=== PATIENT | male | born 1950 | race Caucasian/White ===

== ENCOUNTER 2024-01-22 14:08 | Emergency (ER) | payer OTHER ==
[~2024-01-22] VITALS: Ht 185.4 cm; Wt 88.0 kg
[2024-01-22 16:01] LABS: Urine Bacteria None Seen /hpf (None Seen)
[2024-01-22 16:24] LABS: Urine Blood Negative /uL (Negative); Urine Clarity Clear (Clear); Urine Color Yellow (Yellow); Urine Mucus FEW (None Seen); Urine Protein, UAD TRACE (Negative); Urine Specific Gravity 1.027 (1.001-1.035); Urine Urobilinogen Normal (Negative); Urine WBC 4 /hpf (0 - 3); Urine pH 5.5 (5.0-9.0)
[2024-01-22 16:45] LABS: Basophils # (auto) 0 10 ^3/uL (0-0.2); Basophils % (auto) 0.3 % (0.0-2.0); Eosinophils # (auto) 0 10 ^3/uL (0-0.8); Eosinophils % (auto) 0.1 % (0.0-7.0); Hematocrit 43.4 % (41.0-53.0); Hemoglobin 14.4 g/dL (13.5-17.5); Lymphocytes # (auto) 0.8 10 ^3/uL (0.4-5.4); Lymphocytes % (auto) 8.9 % (10.0-50.0); Mean Corpuscular Hemoglobin 27.3 pg (28.0-32.0); Mean Corpuscular Hgb Conc. 33.2 g/dL (32.0-36.0); Mean Corpuscular Volume 82.1 fL (80.0-100.0); Monocytes # (auto) 0.5 10 ^3/uL (0-1.3); Neutrophils # (auto) 7.2 10 ^3/uL (1.6-8.6); Neutrophils % (auto) 84.7 % (37.0-80.0); Nucleated Red Blood Cells % 0.1 %; Red Blood Cells 5.28 10^6/uL (4.5-5.90); Red Cell Distribution Width 14.9 % (11.8-14.3); White Blood Cell 8.5 10^3/uL (4.4-10.8)
[2024-01-22] MEDS: MECLIZINE HCL 25 MG TAB PO ONE (16:49)
[2024-01-22 16:58] LABS: Chloride 108 mmol/L (98-107); Potassium 3.7 mmol/L (3.5-5.1); Sodium 140 mmol/L (136-145)
[2024-01-22 16:59] VITALS: BP 153/79; PULSE 88; RESP 17; TEMP 97.7; O2SAT 97
[2024-01-22 16:59] LABS: Anion Gap 9 (5-15); Calcium 10.7 mg/dL (8.7-10.4); Carbon Dioxide 23 mmol/L (20-30)
[2024-01-22 17:05] LABS: BUN/Creatinine Ratio 20.3 (10.0-20.0); Blood Urea Nitrogen 14 mg/dL (9-23); Glucose 119 mg/dL (74-106); Lipase 32 U/L (12-53)
[2024-01-22] MEDS ORDERED: ZOFR4T PO (17:43)
[2024-01-22] MEDS ORDERED: MECL1TAB42 PO (17:43)
== END 2024-01-22 18:14 | disposition home or self-care (01) ==
LOC: ER 14:08
DX: R42 Dizziness and giddiness (principal)
CPT/HCPCS: 36415; 70450; 80048; 81001; 83605; 83690; 83880; 84484; 85025; 93005; 99284; J8597

== ENCOUNTER 2024-01-24 04:13 | Inpatient (IN) | payer OTHER ==
[~2024-01-24] VITALS: Ht 185.4 cm; Wt 84.2 kg
[2024-01-24] VITALS (8 sets, daily range): BP systolic 119–157; BP diastolic 70–94; PULSE 71–91; RESP 16–18; TEMP 97.9–98.4; O2SAT 92–97
[~2024-01-24 04:13] MED LIST: MECL1TAB42 PO; ZOFR4T PO
[2024-01-24 05:03] LABS: Basophils # (auto) 0.1 10 ^3/uL (0-0.2); Basophils % (auto) 1.1 % (0.0-2.0); Eosinophils # (auto) 0.1 10 ^3/uL (0-0.8); Eosinophils % (auto) 0.9 % (0.0-7.0); Hematocrit 42.1 % (41.0-53.0); Hemoglobin 13.8 g/dL (13.5-17.5); Lymphocytes % (auto) 14.8 % (10.0-50.0); Mean Corpuscular Hemoglobin 27.1 pg (28.0-32.0); Mean Corpuscular Hgb Conc. 32.9 g/dL (32.0-36.0); Mean Corpuscular Volume 82.5 fL (80.0-100.0); Monocytes # (auto) 0.7 10 ^3/uL (0-1.3); Monocytes % (auto) 9.9 % (0.0-12.0); Neutrophils # (auto) 4.9 10 ^3/uL (1.6-8.6); Neutrophils % (auto) 73.3 % (37.0-80.0); Nucleated Red Blood Cells % 0.1 %; Red Cell Distribution Width 15.1 % (11.8-14.3); White Blood Cell 6.7 10^3/uL (4.4-10.8)
[2024-01-24 05:22] LABS: Alanine Aminotransferase 35 U/L (7-40); Albumin 4.6 g/dL (3.2-4.8); Alkaline Phosphatase 88 U/L (46-116); Anion Gap 7 (5-15); Aspartate Aminotransferase 23 U/L (13-40); BUN/Creatinine Ratio 21.3 (10.0-20.0); Bilirubin, Total 0.7 mg/dL (0.2-1.0); Blood Urea Nitrogen 16 mg/dL (9-23); Calcium 10.1 mg/dL (8.7-10.4); Carbon Dioxide 24 mmol/L (20-30); Chloride 109 mmol/L (98-107); Glucose 110 mg/dL (74-106); Magnesium 2.1 mg/dL (1.6-2.6); Potassium 3.6 mmol/L (3.5-5.1); Sodium 140 mmol/L (136-145)
[2024-01-24 05:25] LABS: INR 1.03 (0.9-1.15); Partial Thromboplastin Time 28.1 SEC (24.5-34.5); Prothrombin Time 10.8 sec (9.3-11.8)
[2024-01-24] MEDS: LORazepam 2MG/ML-1ML VIAL IV ONE (08:25)
[2024-01-24] MEDS: MECLIZINE HCL 25 MG TAB PO ONE ×2 (08:25→20:26)
[2024-01-24] MEDS: FUROSEMIDE 20 MG/2 ML VIAL IV ONE (08:35)
[2024-01-24] MEDS: SODIUM CHLORIDE 0.9% 1,000 ML IV ONE (09:23)
[2024-01-24] MEDS: SODIUM CHLORIDE 0.9% 500 ML IVB ONE (09:23)
[2024-01-24 09:25] LABS: Urine Bacteria None Seen /hpf (None Seen)
[2024-01-24 09:39] LABS: Urine Blood Negative /uL (Negative); Urine Clarity Clear (Clear); Urine Color Light-Yellow (Yellow); Urine Mucus FEW (None Seen); Urine Protein, UAD Negative (Negative); Urine Specific Gravity 1.023 (1.001-1.035); Urine Urobilinogen Normal (Negative); Urine WBC 2 /hpf (0 - 3)
[2024-01-24] MEDS ORDERED: NITROGLYCERIN 0.4 MG SL TAB SL PRN (11:00)
[2024-01-24] MEDS ORDERED: MORPHINE SULFATE INJ 2 MG/ml SYRG IV PRN (11:00)
[2024-01-24] MEDS ORDERED: ONDANSETRON HCL 4 MG/2 ML VIAL IV PRN (11:15)
[2024-01-24] MEDS ORDERED: AMLO-412 PO (17:04)
[2024-01-24] MEDS ORDERED: SIMV40TA18 PO (17:04)
[2024-01-24] MEDS: SODIUM CHLORIDE 0.9% 1,000 ML IV SCH (20:26)
[2024-01-24] MEDS: hydrALAZINE HCL 20 MG/ML VL IV PRN (21:15)
[2024-01-25] VITALS (7 sets, daily range): BP systolic 98–162; BP diastolic 55–89; PULSE 79–88; RESP 14–19; TEMP 97.4–98.1; O2SAT 92–98
[2024-01-25 11:12] LABS: Basophils # (auto) 0.1 10 ^3/uL (0-0.2); Basophils % (auto) 0.5 % (0.0-2.0); Eosinophils # (auto) 0 10 ^3/uL (0-0.8); Eosinophils % (auto) 0.1 % (0.0-7.0); Hematocrit 41.3 % (41.0-53.0); Lymphocytes # (auto) 1.2 10 ^3/uL (0.4-5.4); Lymphocytes % (auto) 9.6 % (10.0-50.0); Mean Corpuscular Hgb Conc. 33.9 g/dL (32.0-36.0); Mean Corpuscular Volume 82.7 fL (80.0-100.0); Monocytes # (auto) 1.8 10 ^3/uL (0-1.3); Monocytes % (auto) 13.9 % (0.0-12.0); Neutrophils # (auto) 9.6 10 ^3/uL (1.6-8.6); Neutrophils % (auto) 75.9 % (37.0-80.0); Red Blood Cells 4.99 10^6/uL (4.5-5.90); Red Cell Distribution Width 14.8 % (11.8-14.3); White Blood Cell 12.7 10^3/uL (4.4-10.8)
[2024-01-25 11:19] LABS: Folate (Folic Acid) 25.58 ng/mL (>5.38)
[2024-01-25] MEDS ORDERED: MECLIZINE HCL 25 MG TAB PO PRN (11:45)
[2024-01-25 11:54] LABS: Alanine Aminotransferase 26 U/L (7-40); Albumin 4.4 g/dL (3.2-4.8); Alkaline Phosphatase 85 U/L (46-116); Anion Gap 12 (5-15); Aspartate Aminotransferase 21 U/L (13-40); BUN/Creatinine Ratio 12.7 (10.0-20.0); Blood Urea Nitrogen 16 mg/dL (9-23); Carbon Dioxide 22 mmol/L (20-30); Chloride 109 mmol/L (98-107); Glucose 100 mg/dL (74-106); Potassium 3.4 mmol/L (3.5-5.1); Sodium 143 mmol/L (136-145); Total Protein 6.9 g/dL (5.7-8.2)
[2024-01-26] VITALS (8 sets, daily range): BP systolic 141–163; BP diastolic 67–94; PULSE 10–99; RESP 17–19; TEMP 97.5–99.3; O2SAT 92–96
[2024-01-26 10:47] LABS: Basophils # (auto) 0 10 ^3/uL (0-0.2); Basophils % (auto) 0.3 % (0.0-2.0); Eosinophils # (auto) 0 10 ^3/uL (0-0.8); Eosinophils % (auto) 0.1 % (0.0-7.0); Hemoglobin 13.7 g/dL (13.5-17.5); Lymphocytes # (auto) 0.6 10 ^3/uL (0.4-5.4); Lymphocytes % (auto) 4.6 % (10.0-50.0); Mean Corpuscular Hemoglobin 27.8 pg (28.0-32.0); Mean Corpuscular Hgb Conc. 33.3 g/dL (32.0-36.0); Mean Corpuscular Volume 83.3 fL (80.0-100.0); Monocytes # (auto) 1.7 10 ^3/uL (0-1.3); Monocytes % (auto) 12.3 % (0.0-12.0); Neutrophils # (auto) 11.2 10 ^3/uL (1.6-8.6); Neutrophils % (auto) 82.7 % (37.0-80.0); Red Blood Cells 4.93 10^6/uL (4.5-5.90); Red Cell Distribution Width 14.7 % (11.8-14.3); White Blood Cell 13.6 10^3/uL (4.4-10.8)
[2024-01-26 11:01] LABS: Alanine Aminotransferase 29 U/L (7-40); Alkaline Phosphatase 82 U/L (46-116); Anion Gap 9 (5-15); Aspartate Aminotransferase 18 U/L (13-40); BUN/Creatinine Ratio 11.7 (10.0-20.0); Calcium 9.5 mg/dL (8.5-10.1); Carbon Dioxide 22 mmol/L (20-30); Chloride 109 mmol/L (98-107); Glucose 143 mg/dL (74-106); Potassium 3.5 mmol/L (3.5-5.1); Sodium 140 mmol/L (136-145)
[2024-01-26 11:02] LABS: Albumin 4.2 g/dL (3.2-4.8); Total Protein 6.3 g/dL (5.7-8.2)
[2024-01-26 11:04] LABS: Blood Urea Nitrogen 33 mg/dL (9-23)
[2024-01-26] MEDS: predniSONE 20 MG TAB PO ONE (15:00)
[2024-01-26] MEDS ORDERED: PRED20TA2 PO (15:06)
== END 2024-01-26 19:04 | DRG 149 ==
LOC: ER 04:13 → EDBD 04:13 → OVERFLOW 11:00 → EAST 14:23 → OBSVTOIN 18:37
PROVIDERS: ADMIT Student in an Organized Health Care Education/Training Program; ATTEND Student in an Organized Health Care Education/Training Program
DX: H81.8X9 Other disorders of vestibular function, unspecified ear (principal); I67.2 Cerebral atherosclerosis; H93.3X9 Disorders of unspecified acoustic nerve; R13.12 Dysphagia, oropharyngeal phase; I50.9 Heart failure, unspecified; I11.0 Hypertensive heart disease with heart failure; E78.00 Pure hypercholesterolemia, unspecified; Z96.643 Presence of artificial hip joint, bilateral; H81.10 Benign paroxysmal vertigo, unspecified ear; R27.0 Ataxia, unspecified
CPT/HCPCS: 36415; 70450; 70496; 70551; 71045; 80053; 81001; 82607; 82746; 83735; 83880; 84484; 85025; 85610; 85730; 92610; 93005; 96361; 96374; 96375; 97110; 97163; 97530; G0378